=== PATIENT | female | born 1950 | race Caucasian/White ===

== ENCOUNTER 2024-09-05 11:24 | Day surgery (SDC) | payer MEDICARE, SELFPAY ==
[2024-09-05 12:42] VITALS: BP 134/67; PULSE 58; RESP 18; TEMP 36.4; O2SAT 99
--- NOTE | 2024-09-05 12:57 | P.PNANES_ITS ---
[facility] Disclaimer: The information contained in this section may have been updated after the patient was seen, as this information can be updated by other users. Medical History Acid reflux Pre-diabetes Appendicitis Surgical History (Updated 03/15/24 @ 10:55 by Isabella Tolliver MA) History of esophagogastroduodenoscopy (EGD) History of colonoscopy History of cholecystectomy History of hysterectomy H/O kidney removal Social History (Updated 03/15/24 @ 10:56 by Isabella Tolliver MA) Smoking Status: Never smoker alcohol intake: never substance use type: denies use current occupational status: retired Travel in the last 8 weeks?: None caffeine: No Have you lived/traveled outside [place] in past 30 days?: No Contact w/someone who lives/traveled outside US past 30 days?: No Exposure to someone with infectious disease in past 14 days?: No Do you have a fever (greater than 100.4 F or 38 C)?: No Have you tested positive for COVID-19?: No Exposed to someone with COVID-19 in past 14 days?: No Do you have a sore throat?: No Do you have a cough?: No Do you have any weakness?: No Do you have any diarrhea?: No Are you experiencing any unusual bleeding?: No Do you have any muscle aches/pain?: No Do you have any abdominal pain?: No Are you experiencing loss of taste or smell?: No [facility] Anesthesia Checklist Patient Identification Patient Identification: Arm Band and Verbal (Name & ) Structural Data Admitted From: Home Planned Operative Procedure/s: EGD and colonoscopy Consent for Planned Operative Procedure(s) Verified: Yes Verified Documents: Surgical Consent NPO Status Verified Time NPO: 00:00 Chart Verification Results Verified: None Additional verifications Patient : No Anesthesia Reactions: No Hx Blood Transfusions: No Blood Transfusion Reaction: No Airway Assessment Mallampati Score:: Class II Dentition: Good Dentition Neurological Assessment Level of Consciousness: Awake, Alert and Appropriate Hx Seizures: No Numbness or tingling in extremities: No Anesthesia Plan Anesthesia Risk discussed: Yes Anesthesia Plan: Verified ASA Class: II Anesthesia Type: MAC
--- NOTE | 2024-09-05 13:47 | EXP.HP ---
History of Present Illness *Admission Date: 09/05/24 *Reason for visit:: Dysphagia/screening *History of present illness: Mrs. Rae is a 74-year-old female who is here for diagnostic/therapeutic upper endoscopy secondary to dysphagia and prior history of Schatzki's ring and screening colonoscopy for screening for colon cancer and her last colonoscopy was 2013. The examination is deemed medically necessary for EGD and screening colonoscopy. The patient has been seen, interviewed and examined prior to the procedure by both myself and the anesthesia provider. [facility] Disclaimer: The information contained in this section may have been updated after the patient was seen, as this information can be updated by other users. Medical History Acid reflux Pre-diabetes Appendicitis Surgical History (Updated 03/15/24 @ 10:55 by Isabella Tolliver MA) History of esophagogastroduodenoscopy (EGD) History of colonoscopy History of cholecystectomy History of hysterectomy H/O kidney removal Social History (Updated 03/15/24 @ 10:56 by Isabella Tolliver MA) Smoking Status: Never smoker alcohol intake: never substance use type: denies use current occupational status: retired Travel in the last 8 weeks?: None caffeine: No Have you lived/traveled outside US in past 30 days?: No Contact w/someone who lives/traveled outside US past 30 days?: No Exposure to someone with infectious disease in past 14 days?: No Do you have a fever (greater than 100.4 F or 38 C)?: No Have you tested positive for COVID-19?: No Exposed to someone with COVID-19 in past 14 days?: No Do you have a sore throat?: No Do you have a cough?: No Do you have any weakness?: No Do you have any diarrhea?: No Are you experiencing any unusual bleeding?: No Do you have any muscle aches/pain?: No Do you have any abdominal pain?: No Are you experiencing loss of taste or smell?: No Other Medical History Have you received the Pneumonia Vaccine: Yes Review of Systems Review of Systems Review of systems (narrative): Negative *Cardiovascular Comments: Negative *Gastrointestinal Comments: Negative *Genitourinary Comments: Negative *Musculoskeletal Comments: Negative *Neurologic Comments: Negative Meds Home Medications and Allergies Home Medications ?Medication ?Instructions ?Recorded ?Confirmed ?Type escitalopram oxalate 20 mg tablet 20 mg PO DAILY 03/15/24 09/05/24 History levothyroxine 50 mcg tablet 50 mcg PO DAILY 03/15/24 09/05/24 History liothyronine 5 mcg tablet 5 mcg PO DAILY 03/15/24 09/05/24 History lisinopril 5 mg tablet 5 mg PO DAILY 03/15/24 09/05/24 History methylcellulose (with sugar) oral 1 tbsp PO DAILY PRN bowels 03/15/24 09/05/24 History powder (Citrucel (sucrose) oral powder) omega-3 acid ethyl esters 1 gram PO 03/15/24 03/15/24 History capsule polyethylene glycol 3350 17 17 g PO DAILY PRN bowels 03/15/24 09/05/24 History gram/dose oral powder (Miralax) peg 3350-electrolytes 236 240 ml PO Q10M colonscopy #4,000 mL 05/05/24 Rx gram-22.74 gram-6.74 gram-5.86 gram solution (Golytely) New Prescriptions to Start Prescriptions: Allergies Allergy/AdvReac Type Severity Reaction Status Date / Time amoxicillin Allergy Mild Rash Verified 03/15/24 10:49 Penicillins Allergy Mild Rash Verified 03/15/24 10:49 Exam Data for Last 24 hours Vital signs and Labs for Last 24 Hours: Temp Pulse Resp BP Pulse Ox O2 Del Method 97.6 F 58 L 18 134/67 99 Room Air 09/05/24 12:42 09/05/24 12:42 09/05/24 12:42 09/05/24 12:42 09/05/24 12:42 09/05/24 12:42 *Routine HEENT Exam Head: Present normocephalic Eye: Present EOMI and PERRL ENT: Present mucous membranes moist *Routine Neck Exam Neck: Present supple *Routine Respiratory Exam Respiratory: Present CTA bilaterally *Routine Cardiovascular Exam Cardiovascular: Present RRR *Routine Abdominal Exam Abdominal: Present soft and normoactive bowel sounds; Absent tenderness *Routine Rectal Exam Rectal:: deferred *Routine Genitalia Exam Genitalia:: deferred *Routine Extremities Exam Extremities: Absent cyanosis, clubbing or edema *Routine Skin Exam Skin: Present warm; Absent rash *Routine Neurological Exam Neurological: Present alert and oriented X3 Assessment and Plan *Assessment and plan (1) Dysphagia: Status: Acute Category: Medical Code(s): R13.10 - Dysphagia, unspecified (2) Schatzki's ring: Status: Acute Category: Medical Code(s): K22.2 - Esophageal obstruction (3) Encounter for screening for malignant neoplasm of colon: Status: Acute Category: Medical Code(s): Z12.11 - Encounter for screening for malignant neoplasm of colon Plan A/P: 1. Dysphagia for upper endoscopy and screening for colonoscopy is the preprocedural diagnosis. The patient will be anesthetized/sedated using MAC sedation. The patient has been seen and examined. Cardiac and lung assessment prior to the examination is stable. Proceed with planned EGD and colonoscopy.
[2024-09-05 13:49] VITALS: O2SAT 99
--- NOTE | 2024-09-05 13:57 | HMH.PROCNOTE ---
[facility] Procedure Note Date: 09/05/24 Time: 14:04 Procedure Note:: Upper Endoscopy Procedure Report: Esophagogastroduodenoscopy with cold biopsies and TTS balloon dilation Endoscopost: Eric Eduardo II, MD Referring Physician: COLTEN Moncada, [address] [place] [address] , [place] [address] Date of Procedure: September 05, 2024 Equipment: Olympus GIF 190 standard upper endoscope Sedation: MAC sedation Indications: Mrs. Rae is a 74-year-old female with recurrent dysphagia. She does have a history of a Schatzki's ring and was dilated in 2013. She is had recurrent dysphagia which has worsened over the last several years. She does get some heartburn and reflux. She reports some fullness. She reports no abdominal pain or weight loss. Procedure: Prior to the procedure, a history and physical exam was performed, and patient's medications and allergies were reviewed. The risks, benefits and alternatives of the sedation and procedure were discussed with the patient. All questions were answered and informed consent was obtained. The patient was brought to the procedure room. Patient identification and proposed procedure were verified by the physician and the nurse. The patient was placed in a left lateral decubitus position and the scope was passed under direct vision. Throughout the procedure, the patient's blood pressure, pulse, and oxygen saturations were monitored continuously. The upper GI endoscopy was accomplished without difficulty. The patient tolerated the procedure well. Findings: The scope was passed directly into the upper esophagus and advanced to the third portion of the duodenum. The post bulbar duodenum and duodenal bulb were normal with normal mucosa and conniventes. The scope was withdrawn through a normal duodenal bulb and pylorus into the stomach. There was very mild linear reactive gastropathy of the antrum. The body and fundus of the stomach are grossly normal. Upon retroflexion there was no hiatal hernia. Cold biopsies were taken from the antrum. The scope was then withdrawn into the esophagus. There was no evidence of reflux esophagitis. There was a tiny island of salmon-colored mucosa that was biopsied just proximal to the GE junction. There was no Schatzki's rings or stricturing. There were strong tertiary contractions and evidence of moderate esophageal dysmotility. The entire esophagus was dilated to 60 [place]/20 mm with a TTS hydrostatic balloon. There was some resistance at the cricopharyngeus/cricopharyngeal spasm the remainder of the esophageal mucosa was normal. Impression: 1. Cricopharyngeal spasm status post dilation to 20 mm 2. Nonerosive GERD with moderate esophageal dysmotility 3. Mild linear reactive gastropathy of antrum Plan: I will follow-up the biopsies and discussed the findings with the patient and family. I will proceed with screening colonoscopy.
--- NOTE | 2024-09-05 14:06 | P.PCN_ITS ---
[facility] Procedure Note Date: 09/05/24 Time: 14:17 Procedure Note:: Colonoscopy Procedure Report: Colonoscopy Endoscopist: Eric Eduardo II, MD Referring physician: COLTEN Moncada, [address] [place] [address] , [place] [address] Date of Procedure: September 05, 2024 Equipment: Olympus 190 variable stiffness pediatric colonoscope Sedation: MAC sedation Indication: Mrs. Rae is a 74-year-old female who is here for screening colonoscopy. Her last colonoscopy was in 2013. She reports no abdominal pain, weight loss, change in her bowel habits or rectal bleeding. She reports no family history of colon cancer. Procedure: Prior to the procedure, a history and physical exam was performed, and patient's medications and allergies were reviewed. The risks, benefits and alternatives of the sedation and procedure were discussed with the patient. All questions were answered and informed consent was obtained. The patient was brought to the procedure room. Patient identification and proposed procedure were verified by the physician and the nurse. The patient was placed in a left lateral decubitus position and the scope was passed under direct vision. Throughout the procedure, the patient's blood pressure, pulse, and oxygen saturations were monitored continuously. The colonoscopy was accomplished without difficulty. The patient tolerated the procedure well. Findings: On digital rectal examination there was normal rectal tone. There were no external hemorrhoids. The colonoscope was introduced through the anal canal to the rectum and advanced to the cecum. The ileocecal valve and appendiceal orifice were identified. The scope was advanced a short distance into the ileum which appeared grossly normal. The scope was then withdrawn into the colon. The cecum, ascending, transverse, descending, sigmoid and rectum were grossly normal. There were no mucosal abnormalities identified. Upon retroflexion within the rectum there were grade 1-2 internal hemorrhoids. The preparation was excellent throughout with [place] Preparation Score of 9. The cecal time was 10 minutes. Impression: 1. Normal colonoscopy with intubation of the terminal ileum Plan: The patient will not require any further preventive/screening colonoscopy. I would encourage psyllium bulking fiber supplementation on a maintenance basis.
[2024-09-05 14:25] VITALS: BP 106/64; PULSE 69; RESP 16; TEMP 36.2; O2SAT 99
[2024-09-05 14:35] VITALS: BP 112/62; PULSE 65; RESP 16; O2SAT 99
[2024-09-05 14:45] VITALS: BP 115/59; PULSE 66; RESP 16; O2SAT 99
[2024-09-05 14:55] VITALS: BP 120/65; PULSE 61; RESP 16; O2SAT 99
== END 2024-09-05 15:00 | disposition home or self-care (01) ==
PROVIDERS: PCP Nurse Practitioner Family; Visit Provider Internal Medicine Gastroenterology
PROC: 0DJ08ZZ Inspection of Upper Intestinal Tract, Via Natural or Artificial Opening Endoscopic (ICD-10-PCS; CPT 45378; principal; 2024-09-05 13:00)
DX: Z12.11 Encounter for screening for malignant neoplasm of colon (principal); R13.10 Dysphagia, unspecified; K22.2 Esophageal obstruction; R12 Heartburn; K31.9 Disease of stomach and duodenum, unspecified; K22.4 Dyskinesia of esophagus; K21.9 Gastro-esophageal reflux disease without esophagitis; J39.2 Other diseases of pharynx
CPT/HCPCS: 43239; 43249; C1726